=== PATIENT | female | born 1975 | race Caucasian/White ===

== ENCOUNTER 2017-03-08 16:09 | Emergency (ER) | payer SELFPAY ==
[~2017-03-08] VITALS: Ht 162.6 cm; Wt 65.0 kg
[2017-03-08 16:20] VITALS: BP 125/85
[2017-03-08] MEDS ORDERED: ACETAMINOPHEN 500MG TABLET PO ONE (16:45)
== END 2017-03-08 19:19 | disposition home or self-care (01) ==
LOC: ER 16:09
DX: S80.01XA Contusion of right knee, initial encounter (principal); M79.671 Pain in right foot; F41.9 Anxiety disorder, unspecified; Z88.6 Allergy status to analgesic agent; Y08.89XA Assault by other specified means, initial encounter; Y93.89 Activity, other specified; Y92.018 Other place in single-family (private) house as the place of occurrence of the external cause
CPT/HCPCS: 73562; 73610; 73630; 99284; L1830